=== PATIENT | male | born 1980 | race American Indian/Alaskan Native ===

== ENCOUNTER 2017-05-04 18:54 | Emergency (ER) | payer SELFPAY ==
[2017-05-04] MEDS ORDERED: DILAUDID IV ONE (20:11)
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
[2017-05-04] MEDS ORDERED: ZOFRAN IV NR (21:00)
[2017-05-04] MEDS ORDERED: ZOFRAN IV ONE (21:07)
[2017-05-04 21:11] LABS: Basophils % (Auto) 0.3 % (0.0-1.8); Eosinophils # (Auto) 0.1 K/mm3 (0.0-0.4); Eosinophils % (Auto) 0.6 % (0.0-4.3); Hematocrit 44.4 % (35.5-45.6); Hemoglobin 14.6 gm/dl (11.8-15.2); Lymphocytes # (Auto) 1.4 K/mm3 (1.2-5.4); Lymphocytes % (Auto) 8.9 % (13.4-35.0); Mean Corpuscular HGB Conc 33 % (32-34); Mean Corpuscular Hemoglobin 27 pg (28-32); Mean Corpuscular Volume 81 fl (84-94); Monocytes # (Auto) 1.1 K/mm3 (0.0-0.8); Monocytes % (Auto) 7.2 % (0.0-7.3); Platelet Count 251 K/mm3 (140-440); Red Blood Count 5.51 M/mm3 (3.65-5.03)
[2017-05-04 21:34] LABS: Alanine Aminotransferase 68 units/L (7-56); Albumin 4.4 g/dL (3.9-5); BUN/Creatinine Ratio 19; Blood Urea Nitrogen 17 mg/dL (9-20); Calcium 9.6 mg/dL (8.4-10.2); Hemolysis Index 14; Lipase 52 units/L (13-60)
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
--- NOTE | 2017-05-04 23:43 | Cat Scan Report ---
FINAL REPORT PROCEDURE: CT THORACIC SPINE W CON TECHNIQUE: Computerized axial tomography of the thoracic spine was performed from following the IV injection of iodinated nonionic contrast. HISTORY: back pain COMPARISON: No prior studies are available for comparison. FINDINGS: Vertebral alignment and height are within normal limits. An acute fracture is not identified. Intervertebral disc spaces are well maintained. There is no obvious spinal canal or neural foraminal compromise. Pre and paravertebral soft tissues are within normal limits. IMPRESSION: No acute abnormality.
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
[2017-05-05] MEDS ORDERED: DILAUDID IV ONE (00:07)
[2017-05-05] MEDS ORDERED: ZOFRAN IV ONE (00:59)
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
[2017-05-05 01:53] VITALS: BP 126/74
== END 2017-05-05 01:57 | disposition home or self-care (01) ==
LOC: EDBD → ED 18:54
DX: S22.32XA Fracture of one rib, left side, initial encounter for closed fracture (principal); S00.03XA Contusion of scalp, initial encounter; V89.2XXA Person injured in unspecified motor-vehicle accident, traffic, initial encounter; Y93.89 Activity, other specified; Y92.89 Other specified places as the place of occurrence of the external cause; Y99.8 Other external cause status
CPT/HCPCS: 36415; 70450; 71260; 72125; 72129; 72132; 74177; 80053; 83690; 85025; 96374; 96375; 96376; 99284; J1170; J2405; Q9967